=== PATIENT | male | born 1995 | race Two or more races ===

== ENCOUNTER 2018-10-01 13:24 | Emergency (ER) | payer OTHER ==
[2018-10-01 13:32] VITALS: BP 134/88
[2018-10-01] MEDS ORDERED: RABIES VACC, HUMAN DIPLOID/PF 2.5 UNIT VIAL (RABAVERT) IM ONE (13:49)
--- NOTE | 2018-10-01 13:52 | EDPHY ---
H & P Time Seen by Provider: 10/01/18 13:43 HPI/ROS: CHIEF COMPLAINT: 4th rabies vaccination HISTORY OF PRESENT ILLNESS: 23-year-old male presents for his 4th rabies vaccination. He was in [place] 2 weeks ago and was nipped by a stray dog on his [place]. The skin was not broken. He received the 1st 3 rabies vaccinations while in [place]. He presents today for a repeat rabies vaccination. Past Medical/Surgical History: Denies Smoking Status: Never smoked Physical Exam: Alert and oriented, pleasant Extremities: Left lower extremity-normal inspection, no erythema, warmth or tenderness Skin: Intact Neuro: Motor and sensory intact Vascular: Capillary refill brisk distally. Constitutional: Initial Vital Signs Temperature (C) 36.5 C 10/01/18 13:29 Heart Rate 84 10/01/18 13:29 Respiratory Rate 18 10/01/18 13:29 Blood Pressure 134/88 H 10/01/18 13:29 O2 Sat (%) 98 10/01/18 13:29 O2 Delivery Mode Room Air Allergies/Adverse Reactions: Sulfa (Sulfonamide Antibiotics) Allergy (Verified 10/01/18 13:27) Home Medications: Medication Instructions Recorded AMOXICILLIN 10/01/18 Medical Decision Making ED Course/Re-evaluation: Rbbies vaccination given. I wrote a prescription for Imovax (last dose of vaccination). Aba has Imovax, confirmed by pt. Igor f/u. Departure - Departure Disposition: Home, Routine, Self-Care Clinical Impression: Encounter for repeat administration of rabies vaccination Condition: Good Instructions: Rabies Vaccine (ED) Referrals: Karey Schultz MD [Medical Doctor] - As per Instructions
== END 2018-10-01 14:17 | disposition home or self-care (01) ==
DX: Z23 Encounter for immunization (principal); Z29.14 Encounter for prophylactic rabies immune globulin